=== PATIENT | female | born 1990 | race Caucasian/White ===

== ENCOUNTER 2025-01-14 18:34 | Emergency (ER) | payer MEDICAID ==
[~2025-01-14] VITALS: Ht 165.1 cm; Wt 68.0 kg
[2025-01-14 18:34] VITALS: BP 166/86; PULSE 105; RESP 20; TEMP 37.2; O2SAT 100
[2025-01-14] MEDS ORDERED: METHYLPREDNISOLONE 40MG/ML INJ IV ONE (19:15)
[2025-01-14] MEDS ORDERED: FAMOTIDINE 20MG/2ML VIAL IV ONE (19:15)
[2025-01-14] MEDS ORDERED: DIPHENHYDRAMINE 50MG/ML VIAL IV ONE (19:15)
[2025-01-14 19:49] LABS: BASOPHILS % 0.4 % (0.0-2.0); EOSINOPHILS % 0.4 % (0.0-5.0); HEMATOCRIT. 37.4 % (36.0-48.0); HEMOGLOBIN. 12.2 g/dL (12.0-16.0); LYMPHOCYTES % 14.9 % (20.0-50.0); MEAN PLATELET VOLUME 8.8 fl (7.4-10.4); MONOCYTES % 2.3 % (2.0-8.0); NEUTROPHILS % 82.0 % (40.0-76.0); PLATELET 389 x1000/uL (130-400); RED BLOOD CELL COUNT 4.31 mill/uL (4.2-5.4); RED CELL DISTRIBUTION WIDTH 13.5 % (11.6-14.6)
[2025-01-14 19:59] LABS: HCG SCREEN NEGATIVE
[2025-01-14 20:05] LABS: CREATININE 0.9 mg/dL (0.6-1.0); UREA NITROGEN BLOOD 12 mg/dL (9-23)
[2025-01-14] MEDS: FAMOTIDINE 20MG/2ML VIAL IV NR (21:53)
[2025-01-14] MEDS: DIPHENHYDRAMINE 50MG/ML VIAL IV NR (21:53)
[2025-01-14] MEDS: ONDANSETRON HCL 4MG/2ML INJ IV ONE (21:54)
[2025-01-14] MEDS: SODIUM CHLORIDE 0.9% 1,000 ML IV ONE (21:55)
[2025-01-14] MEDS: METHYLPREDNISOLONE SOD SUCC 125MG/2ML (ACT-O-VIAL) IV SCH (21:55)
[2025-01-14] MEDS ORDERED: ONDA4TAB50 MT (22:18)
[2025-01-14] MEDS ORDERED: DIPH25CA83 MT (22:18)
[2025-01-14] MEDS ORDERED: P50 MT (22:18)
== END 2025-01-14 23:25 | disposition home or self-care (01) ==
LOC: ER 18:34
DX: T63.441A Toxic effect of venom of bees, accidental (unintentional), initial encounter (principal); Z79.899 Other long term (current) drug therapy; Z79.52 Long term (current) use of systemic steroids; Y92.89 Other specified places as the place of occurrence of the external cause
CPT/HCPCS: 99284; 96374; 96375; 96361; 80048; 84703; 85025; 36415; 93005; J2919; J1200; J1308; J2405; J7030